=== PATIENT | female | born 1950 | race Caucasian/White ===

== ENCOUNTER 2017-12-30 22:18 | Inpatient (IN) | END 2018-01-04 16:34 | disposition home or self-care (01) | DRG 293 ==

== ENCOUNTER 2018-01-07 17:11 | Inpatient (IN) | END 2018-01-14 19:00 | disposition home health service (06) | DRG 605 ==

== ENCOUNTER 2018-02-02 10:32 | Inpatient (IN) | END 2018-02-09 18:02 | disposition home health service (06) | DRG 291 ==

== ENCOUNTER 2018-04-28 19:11 | Inpatient (IN) | END 2018-05-04 17:30 | disposition home or self-care (01) | DRG 308 ==

== ENCOUNTER 2018-05-14 20:22 | Inpatient (IN) | END 2018-05-27 16:44 | disposition home or self-care (01) | DRG 286 ==

== ENCOUNTER 2018-06-20 21:10 | Emergency (ER) | END 2018-06-21 12:54 | disposition left against medical advice (07) ==

== ENCOUNTER 2018-07-27 20:00 | Observation (INO) | END 2018-07-30 17:00 | disposition home or self-care (01) ==

== ENCOUNTER 2018-08-15 02:26 | Observation (INO) | END 2018-08-17 16:38 | disposition home or self-care (01) ==